=== PATIENT | male | born 1955 | race Caucasian/White ===

== ENCOUNTER 2024-11-22 07:00 | Day surgery (SDC) | payer SELFPAY ==
[~2024-11-22] VITALS: Ht 180.3 cm; Wt 118.8 kg
[~2024-11-22 07:00] MED LIST: Balanced Salt Epinephrine Irrigation Solution 500 mL IR SCH; Lidocaine HCl/Pf 1% 5 ML VIAL ONE; Lidocaine HCl/Pf 1% 5 ML VIAL XX SCH; Moxifloxacin HCL 0.5 MG/0.1 ML 0.4MLSYR LEFTEYE SCH; PHENYLEPHRINE\\TROPICAMIDE\\TETRACAINE OPHTHALMIC DILATING SOLN LEFTEYE PRN; Povidone-Iodine 450 DROP/30 ML Solution LEFTEYE SCH; Povidone-Iodine 450 DROP/30 ML Solution ONE; Tetracaine HCl/Pf 0.5% Opth Soln 4 ml ONE; Triamcinolone Inj Susp 40 MG / ML 1ML Vial INJ SCH; Triamcinolone Inj Susp 40 MG / ML 1ML Vial ONE
[2024-11-22] MEDS ORDERED: Diazepam 5 MG Tab ONE (07:03)
[2024-11-22] MEDS ORDERED: Diazepam 2 MG Tab ONE ×2 (07:03→07:56)
[2024-11-22] MEDS ORDERED: NAPROSYN500 MG PO (07:22)
--- NOTE | 2024-11-22 07:25 | NUR ---
11/22/24 0725 Bryanna Jack 0712: PATIENT REPORTS ANXIETY 01/31 0718: 7 MG PO VALIUM PER ORDERS
[2024-11-22] MEDS ORDERED: Ondansetron HCl 2 MG / ML 2ML Vial ONE (07:31)
== END 2024-11-22 09:11 | disposition home or self-care (01) ==
LOC: ORSCSDS 07:00
PROVIDERS: Ophthalmology
PROC: 08RK3JZ Replacement of Left Lens with Synthetic Substitute, Percutaneous Approach (ICD-10-PCS; principal; 2024-11-22 08:00)
DX: H25.812 Combined forms of age-related cataract, left eye (principal)
CPT/HCPCS: A9270; J2003; J2405; J3301; V2632